=== PATIENT | female | born 1950 | race Two or more races ===

== ENCOUNTER → 2020-09-22 | Day surgery (SDC) | payer OTHER ==
[~2020-09-22] MED LIST: ATIVAN0.5 M1 PO; ATORVASTATIN CA40 MG; BREO ELLIPTA 21 EACH; BUSPIRONE HCL15 MG; CLOTRIMAZOLE28 GM; HYOSCYAMINE0.125 M1 SL; IMODIUM A-D2 MG PO; INTESTINEX680 M1 PO; NORVASC5 MG PO; OXYC1TAB9 PO; PEPCID AC20 MG PO; PROCTO-MED HC28 GM; RESTORIL30 MG; SERTRALINE HCL100 MG; TOPROL XL25 M1 PO; TRAZO PO; TRAZODONE HCL50 MG; URINARY PAIN RE95 MG
== END | disposition home or self-care (01) ==
LOC: ADM 09-16 13:00 → AMB-ENDOS 10:45
PROVIDERS: ATTEND Surgery
DX: K62.89 Other specified diseases of anus and rectum (principal); Z20.822 Contact with and (suspected) exposure to COVID-19

== ENCOUNTER 2020-10-19 10:45 | Inpatient (IN) | payer OTHER ==
[~2020-10-19] VITALS: Ht 152.4 cm; Wt 47.2 kg
[2020-10-19] MEDS ORDERED: PEPCID AC20 MG PO (13:55)
[2020-10-19] MEDS ORDERED: NORVASC5 MG PO (13:55)
[2020-10-19] MEDS ORDERED: TOPROL XL25 M1 PO (13:55)
[2020-10-19] MEDS ORDERED: TRAZO PO (13:56)
[2020-10-19] MEDS ORDERED: ATIVAN0.5 M1 PO (13:56)
[2020-10-29] MEDS ORDERED: BREO ELLIPTA 21 EACH (08:32)
[2020-10-29] MEDS ORDERED: URINARY PAIN RE95 MG (08:32)
[2020-10-29] MEDS ORDERED: ATORVASTATIN CA40 MG (08:32)
[2020-10-29] MEDS ORDERED: RESTORIL30 MG (08:33)
[2020-10-29] MEDS ORDERED: CLOTRIMAZOLE28 GM (08:33)
[2020-10-29] MEDS ORDERED: PROCTO-MED HC28 GM (08:33)
[2020-10-29] MEDS ORDERED: SERTRALINE HCL100 MG (08:33)
[2020-10-29] MEDS ORDERED: BUSPIRONE HCL15 MG (08:33)
[2020-10-29] MEDS ORDERED: TRAZODONE HCL50 MG (08:34)
[2020-10-29] MEDS ORDERED: PEPCID AC20 MG PO (11:00)
[2020-10-29] MEDS ORDERED: HYOSCYAMINE0.125 M1 SL (11:00)
[2020-10-29] MEDS ORDERED: INTESTINEX680 M1 PO (11:01)
[2020-10-29] MEDS ORDERED: OXYC1TAB9 PO (11:01)
[2020-10-29] MEDS ORDERED: IMODIUM A-D2 MG PO (11:02)
== END 2020-10-29 14:03 | disposition home or self-care (01) | DRG 331 ==
LOC: SURG 10-26 09:25 → O/R 10-26 09:25 → SURH 10-26 10:45 → SURG 10-26 21:01
PROVIDERS: ADMIT Surgery; ATTEND Surgery
PROC: 0DBP4ZZ Excision of Rectum, Percutaneous Endoscopic Approach (ICD-10-PCS; 2020-10-26)
PROC: 07BC4ZX Excision of Pelvis Lymphatic, Percutaneous Endoscopic Approach, Diagnostic (ICD-10-PCS; 2020-10-26)
PROC: 0DJD8ZZ Inspection of Lower Intestinal Tract, Via Natural or Artificial Opening Endoscopic (ICD-10-PCS; 2020-10-26)
PROC: 0DBN4ZZ Excision of Sigmoid Colon, Percutaneous Endoscopic Approach (ICD-10-PCS; principal; 2020-10-26 13:45)
DX: C20 Malignant neoplasm of rectum (principal); K57.30 Diverticulosis of large intestine without perforation or abscess without bleeding

== ENCOUNTER 2021-03-02 10:45 | Inpatient (IN) | payer OTHER ==
[2021-03-04] MEDS ORDERED: MIRTAZAPINE15 MG (09:59)
[2021-03-07] MEDS ORDERED: HYOSCYAMINE0.125 M1 SL (11:35)
[2021-03-07] MEDS ORDERED: OXYC1TAB9 PO (11:36)
== END 2021-03-07 12:51 | disposition home or self-care (01) | DRG 348 ==
LOC: O/R 03-04 07:44 → SURH 03-04 07:44
PROVIDERS: ADMIT Surgery; ATTEND Surgery
PROC: 0DBB4ZZ Excision of Ileum, Percutaneous Endoscopic Approach (ICD-10-PCS; principal; 2021-03-04 09:15)
DX: Z43.2 Encounter for attention to ileostomy (principal); C20 Malignant neoplasm of rectum; R19.4 Change in bowel habit

== ENCOUNTER 2023-05-18 06:42 | Day surgery (SDC) | payer OTHER ==
[~2023-05-18 06:42] MED LIST changes: +AVAPRO150 MG PO; +ISOSORBIDE MONO60 MG PO; +MIRTAZAPINE15 MG; +RANOLAZINE ER500 MG PO; +REMERON15 M1; +XANAX XR0.5 MG
[2023-05-18] MEDS ORDERED: CEFAZOLIN SODIUM 1,000 MG VIAL ONE (09:56)
[2023-05-18] MEDS ORDERED: TRAM1TAB98 PO (10:15)
[2023-05-18] MEDS ORDERED: LIDOCAINE HCL 1%/Epi 20ML VIAL IJ ONE ×2 (10:46→11:30)
[2023-05-18] MEDS ORDERED: BUPIVACAINE HCL/PF 0.5% 30ML ML ONE (10:46)
[2023-05-18] MEDS ORDERED: CHLORHEXIDINE GLUCONATE 120 ML BOTTLE TOP ONE (10:49)
[2023-05-18] MEDS ORDERED: CEFAZOLIN SODIUM 1,000 MG VIAL IV ONE (11:30)
[2023-05-18] MEDS ORDERED: BUPIVACAINE HCL 30 ML VIAL IJ ONE (11:30)
== END 2023-05-18 13:20 | disposition home or self-care (01) ==
LOC: CIR.AMB 06:42
PROVIDERS: ATTEND Surgery
DX: C20 Malignant neoplasm of rectum (principal); I10 Essential (primary) hypertension; Z91.041 Radiographic dye allergy status; Z91.013 Allergy to seafood; Z20.822 Contact with and (suspected) exposure to COVID-19